=== PATIENT | male | born 1960 | race African-American/Black ===

== ENCOUNTER → 2017-05-20 | Outpatient (CLI) | payer OTHER | END | disposition home or self-care (01) | LOC: RAD 13:51 | PROC: 3E0R3KZ Introduction of Other Diagnostic Substance into Spinal Canal, Percutaneous Approach (ICD-10-PCS; principal; 2017-05-20) | DX: M40.50 Lordosis, unspecified, site unspecified (principal); M25.78 Osteophyte, vertebrae; M48.02 Spinal stenosis, cervical region; M50.221 Other cervical disc displacement at C4-C5 level | CPT/HCPCS: 62302; 72126 ==